=== PATIENT | male | born 1935 | race Caucasian/White ===

== ENCOUNTER 2023-01-22 13:09 | Inpatient (IN) ==
[2023-01-22] MEDS ORDERED: NS 0.9% 1000 ml BAG 1,000 ML IV ONE (13:36)
[2023-01-22] MEDS ORDERED: cefTRIAXone 1 gm/50 mL D5W 1 GM/50 ML BAG IV ONE (14:15)
[2023-01-22 14:18] LABS: Hematocrit 45.2 % (38-53); Hemoglobin 14.7 g/dL (13.2-16.3); Mean Corpuscular Hemoglobin 29.1 pg (27-33); Mean Corpuscular Hgb Conc 32.6 g/dL (31-36); Mean Corpuscular Volume 89.2 fL (80-97); Mean Platelet Volume 7.5 fL (7.5-11.2); Platelet Count 225 10^3/uL (150-450); Red Blood Count 5.06 10^6/uL (4.06-5.63); Red Cell Distribution Width 16.6 % (12-17)
[2023-01-22] MEDS ORDERED: Piperacillin/Tazobac 3.375 BAG 3.375 GM/100 ML BAG IV ONE (14:28)
[2023-01-22 14:47] LABS: Albumin/Globulin Ratio 1.3 (1-3); C Reactive Protein 4.82 mg/L (<8.01); Calcium 8.4 mg/dL (8.6-10.3); Creatinine, Serum 1.86 mg/dL (0.67-1.17); Magnesium 1.9 mg/dL (1.9-2.7); Phosphorus 2.5 mg/dL (2.5-5.0); Potassium 4.1 mmol/L (3.5-5.0); Total Bilirubin 0.5 mg/dL (0.2-1.0)
[2023-01-22 14:50] LABS: ABS Basophils 0.2 10^3/uL (0.0-0.1); ABS Lymphocytes 0.7 10^3/uL (1.0-4.8); ABS Monocytes 2.3 10^3/uL (0.0-1.1); ABS Neutrophils 22.6 10^3/uL (1.5-7.6); ABS Nucleated RBC 0.03 10^3/ul; Eosinophil % 0.1 %; Lymphocyte % 2.9 %; Nucleated Red Blood Cells % 0.1 %/100WBC (0.0-0.8)
[2023-01-22 15:55] LABS: High Sensitivity Troponin 1 Hr 62 pg/mL (<20)
[2023-01-22] MEDS ORDERED: Ondansetron 4 mg VIAL 2 MG/ML 2 ml VIAL IV PRN (16:06)
[2023-01-22] MEDS ORDERED: Albuterol/Ipratropium NEB.SOL (2.5/0.5 MG) 3 ML NEB.SOLN INH PRN (16:20)
[2023-01-22] MEDS ORDERED: cefTRIAXone 2 gm/50 mL D5W 2 GM/50 ML BAG IV SCH (18:45)
[2023-01-22] MEDS ORDERED: Azithromycin 500 mg/250 ml NS 500 MG/250 ML BAG IVPB SCH (19:15)
[2023-01-22 21:21] LABS: Urine Appearance Clear; Urine Bilirubin Negative (Negative); Urine Blood Negative (Negative); Urine Color Yellow; Urine Glucose 3+(>=500 mg/dL) (Negative); Urine Ketones Negative (Negative); Urine Nitrite Negative (Negative); Urine Protein 2+(100 mg/dL) (Negative); Urine Specific Gravity 1.025 (1.002-1.030); Urine Urobilinogen Negative (Negative)
[2023-01-22 21:50] LABS: Urine Bacteria Absent (Absent); Urine Granular Casts Present (Absent); Urine Red Blood Cell 2+(6-10/hpf) (Absent); Urine Squamous Epithelial Cell Present (Absent); Urine White Blood Cell Trace(0-5/hpf) (Absent)
[2023-01-22] MEDS: Insulin GLARGINE 100 un/ml 10 ml VIAL SUBCUT SCH (22:28)
[2023-01-22] MEDS: NF:Multivitamins/Mins AREDS2 (NF) CAP PO SCH (23:23)
[2023-01-23 06:10] LABS: Hematocrit 38.9 % (38-53); Hemoglobin 12.5 g/dL (13.2-16.3); Mean Corpuscular Hgb Conc 32.1 g/dL (31-36); Mean Corpuscular Volume 90.3 fL (80-97); Mean Platelet Volume 7.8 fL (7.5-11.2); Platelet Count 185 10^3/uL (150-450); Red Blood Count 4.31 10^6/uL (4.06-5.63); Red Cell Distribution Width 16.8 % (12-17); White Blood Count 25.3 10^3/uL (3.6-10.2)
[2023-01-23 06:27] LABS: Calcium 7.3 mg/dL (8.6-10.3); Creatinine, Serum 1.85 mg/dL (0.67-1.17); Magnesium 1.9 mg/dL (1.9-2.7); Potassium 4.7 mmol/L (3.5-5.0); eGFR CKD-EPI 35.3 (>60)
[2023-01-23 06:36] LABS: ABS Basophils 0.2 10^3/uL (0.0-0.1); ABS Lymphocytes 1.3 10^3/uL (1.0-4.8); ABS Monocytes 1.7 10^3/uL (0.0-1.1); ABS Nucleated RBC 0.01 10^3/ul; Eosinophil % 0.1 %; Lymphocyte % 5.3 %
[2023-01-23] MEDS: Aspirin EC 81 mg TAB.EC (enteric coated) PO SCH (09:43)
[2023-01-23] MEDS: CMCS:Mirabegron 25 mg ER TAB (NF) PO SCH (09:44)
[2023-01-23] MEDS: NF:Multivitamins/Mins AREDS2 (NF) CAP PO SCH ×2 (09:44→22:16)
[2023-01-23] MEDS: Insulin GLARGINE 100 un/ml 10 ml VIAL SUBCUT SCH ×2 (10:51→22:15)
[2023-01-23] MEDS: Empagliflozin 25 MG TAB PO SCH (10:52)
[2023-01-23] MEDS: NF:ICOSAPENT ETHYL 1 GM CAPSULE (NF) PO SCH (10:52)
[2023-01-23] MEDS: Mometasone/Formoter 200/5 MDI INH SCH ×2 (13:15→19:24)
[2023-01-23] MEDS: cefTRIAXone 1 gm/50 mL D5W 1 GM/50 ML BAG IV SCH (17:13)
[2023-01-24 06:42] LABS: ABS Lymphocytes 0.7 10^3/uL (1.0-4.8); ABS Monocytes 0.4 10^3/uL (0.0-1.1); ABS Neutrophils 12.6 10^3/uL (1.5-7.6); Hematocrit 39.3 % (38-53); Hemoglobin 12.9 g/dL (13.2-16.3); Mean Corpuscular Hemoglobin 29.6 pg (27-33); Mean Corpuscular Hgb Conc 32.9 g/dL (31-36); Mean Corpuscular Volume 90.1 fL (80-97); Mean Platelet Volume 8.1 fL (7.5-11.2); Platelet Count 186 10^3/uL (150-450); Red Blood Count 4.36 10^6/uL (4.06-5.63); Red Cell Distribution Width 17.1 % (12-17); White Blood Count 13.7 10^3/uL (3.6-10.2)
[2023-01-24] MEDS: Mometasone/Formoter 200/5 MDI INH SCH ×2 (07:53→19:01)
[2023-01-24 08:17] LABS: Calcium 8.1 mg/dL (8.6-10.3); Creatinine, Serum 1.65 mg/dL (0.67-1.17); Magnesium 2.2 mg/dL (1.9-2.7); Potassium 4.4 mmol/L (3.5-5.0); eGFR CKD-EPI 40.4 (>60)
[2023-01-24] MEDS: Aspirin EC 81 mg TAB.EC (enteric coated) PO SCH (10:44)
[2023-01-24] MEDS: Empagliflozin 25 MG TAB PO SCH (10:45)
[2023-01-24] MEDS: NF:Multivitamins/Mins AREDS2 (NF) CAP PO SCH ×2 (10:47→19:58)
[2023-01-24] MEDS: Insulin GLARGINE 100 un/ml 10 ml VIAL SUBCUT SCH ×3 (11:32→20:02)
[2023-01-24] MEDS: CMCS:Mirabegron 25 mg ER TAB (NF) PO SCH (12:09)
[2023-01-24] MEDS: NF:ICOSAPENT ETHYL 1 GM CAPSULE (NF) PO SCH (12:15)
[2023-01-24] MEDS: cefTRIAXone 1 gm/50 mL D5W 1 GM/50 ML BAG IV SCH (17:40)
[2023-01-25] MEDS: Aspirin EC 81 mg TAB.EC (enteric coated) PO SCH (08:25)
[2023-01-25] MEDS: Empagliflozin 25 MG TAB PO SCH (08:25)
[2023-01-25] MEDS: NF:ICOSAPENT ETHYL 1 GM CAPSULE (NF) PO SCH (08:26)
[2023-01-25] MEDS: Insulin GLARGINE 100 un/ml 10 ml VIAL SUBCUT SCH (08:26)
[2023-01-25] MEDS: NF:Multivitamins/Mins AREDS2 (NF) CAP PO SCH (08:27)
[2023-01-25] MEDS: CMCS:Mirabegron 25 mg ER TAB (NF) PO SCH (08:31)
[2023-01-25] MEDS: Mometasone/Formoter 200/5 MDI INH SCH (08:52)
[2023-01-25 09:45] VITALS: BP 151/75
== END 2023-01-25 10:30 | disposition home or self-care (01) | DRG 871 ==
LOC: ED 13:09 → SUATTDRO 16:06 → EDHOLD 16:06 → MED 01-23 11:47
PROVIDERS: ADMIT Student in an Organized Health Care Education/Training Program; ATTEND Internal Medicine

== ENCOUNTER 2023-11-22 10:30 | Observation (INO) ==
[2023-11-22] MEDS: Dextrose 50% Syringe 50 ml 25 GM/50 ML SYRINGE IV PUSH ONE (10:53)
[2023-11-22 10:56] LABS: ABS Basophils 0.1 10^3/uL (0.0-0.1); ABS Eosinophils 0.1 10^3/uL (0.0-0.5); ABS Lymphocytes 1.5 10^3/uL (1.0-4.8); ABS Monocytes 1.4 10^3/uL (0.0-1.1); ABS Neutrophils 9.2 10^3/uL (1.5-7.6); ABS Nucleated RBC 0.01 10^3/ul; Eosinophil % 0.7 %; Hematocrit 38.7 % (38-53); Hemoglobin 12.7 g/dL (13.2-16.3); Lymphocyte % 12.5 %; Mean Corpuscular Hemoglobin 29.9 pg (27-33); Mean Corpuscular Hgb Conc 32.8 g/dL (31-36); Mean Corpuscular Volume 91.2 fL (80-97); Mean Platelet Volume 8.4 fL (7.5-11.2); Nucleated Red Blood Cells % 0.1 %/100WBC (0.0-0.8); Platelet Count 238 10^3/uL (150-450); Red Blood Count 4.24 10^6/uL (4.06-5.63); Red Cell Distribution Width 17.6 % (12-17); White Blood Count 12.4 10^3/uL (3.6-10.2)
[2023-11-22 11:15] LABS: ALT 46 U/L (7-52); AST 43 U/L (13-39); Albumin 3.2 g/dL (3.2-5.2); Albumin/Globulin Ratio 1.3 (1-3); Alcohol, S < 13 mg/dL (<13); Alkaline Phosphatase 65 U/L (35-149); Anion Gap 14 mmol/L (2-16); Blood Urea Nitrogen 53 mg/dL (6-24); CO2 Carbon Dioxide 21 mmol/L (22-32); Calcium 7.4 mg/dL (8.6-10.3); Chloride 102 mmol/L (101-111); Creatinine, Serum 1.78 mg/dL (0.67-1.17); Globulin 2.4 g/dL (2-4); Glucose 318 mg/dL (70-100); Sodium 137 mmol/L (135-145); Total Bilirubin 0.4 mg/dL (0.2-1.0); Total Protein 5.6 g/dL (6.4-8.9); eGFR CKD-EPI 36.7 (>60)
[2023-11-22] MEDS: Dextrose 50% Syringe 50 ml 25 GM/50 ML SYRINGE IV PUSH PRN (13:23)
[2023-11-22] MEDS: D10W 1000 ml BAG 1,000 ML IV SCH (14:14)
[2023-11-22 16:20] LABS: C Reactive Protein 61.09 mg/L (<8.01)
[2023-11-22] MEDS ORDERED: Vancomycin per Pharmacy 1 EA NOTE FOLLOW UP SCH (17:00)
[2023-11-22] MEDS ORDERED: ceFAZolin 1 GM in Dextrose 1 GM/50 ML BAG IVPB SCH (17:00)
[2023-11-22 17:20] LABS: Erythrocyte Sed Rate 75 mm/Hr (0-19)
[2023-11-22] MEDS ORDERED: Albuterol HFA INHALER 8 gm MDI INH PRN (17:51)
[2023-11-22] MEDS: Vancomycin 1,250 MG in NS 0.9% 250 ml 250 ML IVPB ONE (18:37)
[2023-11-22] MEDS: Mometasone/Formoter 200/5 MDI INH SCH (19:37)
[2023-11-22] MEDS: Multivitamins/Mins AREDS2 (NF) CAP PO SCH (21:06)
[2023-11-22] MEDS: ICOSAPENT ETHYL 1 GM CAPSULE (NF) PO SCH (21:06)
[2023-11-23] MEDS: D5W 500 ml BAG 500 ML IV SCH (07:14)
[2023-11-23 07:54] LABS: ABS Basophils 0.1 10^3/uL (0.0-0.1); ABS Eosinophils 0.2 10^3/uL (0.0-0.5); ABS Lymphocytes 1.1 10^3/uL (1.0-4.8); ABS Neutrophils 6.4 10^3/uL (1.5-7.6); Eosinophil % 2.1 %; Hematocrit 38.8 % (38-53); Hemoglobin 12.8 g/dL (13.2-16.3); Lymphocyte % 12.4 %; Mean Corpuscular Hemoglobin 30.1 pg (27-33); Mean Corpuscular Hgb Conc 32.9 g/dL (31-36); Mean Corpuscular Volume 91.4 fL (80-97); Mean Platelet Volume 8.1 fL (7.5-11.2); Platelet Count 207 10^3/uL (150-450); Red Blood Count 4.24 10^6/uL (4.06-5.63); Red Cell Distribution Width 17.5 % (12-17); White Blood Count 8.8 10^3/uL (3.6-10.2)
[2023-11-23] MEDS: Albuterol/Ipratropium NEB.SOL (2.5/0.5 MG) 3 ML NEB.SOLN INH SCH (07:59)
[2023-11-23 08:39] LABS: Calcium 7.6 mg/dL (8.6-10.3); Creatinine, Serum 1.57 mg/dL (0.67-1.17); Potassium 4.4 mmol/L (3.5-5.0); Vancomycin Random 11.5 mcg/mL; eGFR CKD-EPI 42.7 (>60)
[2023-11-23] MEDS: CMCS: Mirabegron 25 mg ER TAB (NF) PO SCH (09:35)
[2023-11-23] MEDS: Aspirin EC 81 mg TAB.EC (enteric coated) PO SCH (09:36)
[2023-11-23] MEDS: Metoprolol Succinate XL 200 mg TAB PO SCH (09:37)
[2023-11-23] MEDS: Vancomycin Random Level NOTE FOLLOW UP ONE (11:49)
[2023-11-23] MEDS: Vancomycin 1000 MG in NS 0.9% 250 ML IVPB ONE (12:12)
[2023-11-23] MEDS ORDERED: Dextrose 50% Syringe 50 ml 25 GM/50 ML SYRINGE IV PUSH PRN (13:20)
[2023-11-24] MEDS: Iodixanol 320 (CONTRAST) 100 ML SDV IV ONE (02:16)
[2023-11-24 05:44] LABS: ABS Basophils 0.1 10^3/uL (0.0-0.1); ABS Eosinophils 0.2 10^3/uL (0.0-0.5); ABS Lymphocytes 1.1 10^3/uL (1.0-4.8); ABS Neutrophils 7.2 10^3/uL (1.5-7.6); Eosinophil % 2.4 %; Hematocrit 39.6 % (38-53); Lymphocyte % 11.2 %; Mean Corpuscular Hemoglobin 29.8 pg (27-33); Mean Corpuscular Hgb Conc 32.8 g/dL (31-36); Mean Corpuscular Volume 90.9 fL (80-97); Mean Platelet Volume 8.1 fL (7.5-11.2); Platelet Count 213 10^3/uL (150-450); Red Blood Count 4.36 10^6/uL (4.06-5.63); Red Cell Distribution Width 17.2 % (12-17); White Blood Count 9.7 10^3/uL (3.6-10.2)
[2023-11-24 07:07] LABS: Calcium 7.7 mg/dL (8.6-10.3); Creatinine, Serum 1.64 mg/dL (0.67-1.17); Magnesium 1.9 mg/dL (1.9-2.7); Potassium 4.7 mmol/L (3.5-5.0); Vancomycin Random 14.1 mcg/mL; eGFR CKD-EPI 40.5 (>60)
[2023-11-24] MEDS: Vancomycin Random Level NOTE FOLLOW UP ONE (10:10)
[2023-11-24] MEDS: Vancomycin 1000 MG in NS 0.9% 250 ML IVPB ONE (20:57)
[2023-11-24] MEDS: Insulin GLARGINE 100 un/ml 10 ml VIAL SUBCUT SCH (21:39)
[2023-11-25 06:13] LABS: ABS Eosinophils 0.3 10^3/uL (0.0-0.5); ABS Lymphocytes 1.2 10^3/uL (1.0-4.8); ABS Monocytes 0.8 10^3/uL (0.0-1.1); ABS Neutrophils 6.9 10^3/uL (1.5-7.6); Eosinophil % 3.1 %; Hematocrit 38.8 % (38-53); Hemoglobin 12.8 g/dL (13.2-16.3); Lymphocyte % 13.1 %; Mean Corpuscular Hemoglobin 29.9 pg (27-33); Mean Corpuscular Hgb Conc 32.9 g/dL (31-36); Mean Corpuscular Volume 90.8 fL (80-97); Mean Platelet Volume 7.7 fL (7.5-11.2); Platelet Count 227 10^3/uL (150-450); Red Blood Count 4.28 10^6/uL (4.06-5.63); White Blood Count 9.2 10^3/uL (3.6-10.2)
[2023-11-25 08:11] LABS: Calcium 7.9 mg/dL (8.6-10.3); Creatinine, Serum 1.46 mg/dL (0.67-1.17); Magnesium 1.9 mg/dL (1.9-2.7); Potassium 4.7 mmol/L (3.5-5.0); eGFR CKD-EPI 46.5 (>60)
[2023-11-25 13:17] VITALS: BP 156/79
[2023-11-26] MEDS ORDERED: Vancomycin Random Level NOTE FOLLOW UP ONE (06:00)
== END 2023-11-25 15:50 | disposition short-term general hospital (02) ==
LOC: ED 10:30 → EDHOLD 10:30 → MED 14:16
PROVIDERS: ADMIT Internal Medicine; ATTEND Internal Medicine